=== PATIENT | female | born 1995 | race Caucasian/White ===

== ENCOUNTER 2019-07-10 11:01 | Emergency (ER) | payer OTHER ==
--- NOTE | 2019-07-10 12:25 | ED Physician Documentation ---
PD HPI ABD PAIN - Stated complaint Stated Complaint: FEMALE - Chief complaint Chief Complaint: Abd Pain - History obtained from History obtained from: Patient - History of Present Illness Timing - onset: Other (G1 23-year-old woman with unknown last menses, she had an IUD and switched over to control pill in April. She started spotting about 5 days ago and took a home test which was positive. She continues to spot and have mild pelvic pain.) Review of Systems Ten Systems: 10 systems reviewed and negative Constitutional: denies: Fever, Chills Cardiac: denies: Chest pain / pressure, Palpitations Respiratory: denies: Dyspnea, Cough PD PAST MEDICAL HISTORY - Past Medical History Past Medical History: No - Allergies Allergies/Adverse Reactions: Allergies Allergy/AdvReac Type Severity Reaction Status Date / Time No Known Drug Allergies Allergy Verified 07/10/19 11:05 - Family History Family history: reports: Non contributory PD ED PE NORMAL - Vitals Vital signs reviewed: Yes - General General: Alert and oriented X 3, No acute distress - HEENT HEENT: PERRL, EOMI - Neck Neck: Supple, no meningeal sign, No bony TTP - Cardiac Cardiac: RRR, No murmur - Respiratory Respiratory: No respiratory distress, Clear bilaterally - Abdomen Abdomen: Normal bowel sounds, Soft, Non tender - Female Female : Other (Bedside ultrasound demonstrates a suggestion of a gestational sac without clear IUP. There is free fluid.) - Back Back: No CVA TTP, No spinal TTP - Derm Derm: Normal color, Warm and dry - Extremities Extremities: No edema, No calf tenderness / cord - Neuro Neuro: Alert and oriented X 3, Normal speech - Psych Psych: Normal mood Results - Vitals Vitals: Vital Signs - 24 hr 07/10/19 07/10/19 07/10/19 11:05 12:44 13:41 Temperature 36.8 C 37.1 C 37.2 C Heart Rate 73 71 81 Respiratory 17 16 16 Rate Blood Pressure 115/70 109/77 114/74 O2 Saturation 100 100 96 Oxygen O2 Source Room air - Labs Labs: Laboratory Tests 07/10/19 07/10/19 07/10/19 12:40 13:30 13:30 WBC 8.0 RBC 4.58 Hgb 14.1 Hct 42.3 MCV 92.4 MCH 30.8 MCHC 33.3 RDW 11.4 L Plt Count 300 MPV 9.6 Neut # (Auto) 5.3 Lymph # (Auto) 2.1 [place] # (Auto) 0.5 Eos # (Auto) 0.1 Baso # (Auto) 0.0 Absolute Nucleated RBC 0.00 Nucleated RBC % 0.0 Sodium 136 Potassium 3.7 Chloride 102 Carbon Dioxide 25 Anion Gap 9.0 BUN 12 Creatinine 0.9 Estimated GFR (MDRD) 76 L Glucose 91 Calcium 9.0 Total Bilirubin 0.8 AST 18 ALT 18 Alkaline Phosphatase 33 L Total Protein 7.5 Albumin 4.5 Globulin 3.0 Albumin/Globulin Ratio 1.5 Lipase 34 HCG, Quant Urine Color YELLOW Urine Clarity CLEAR Urine pH 6.0 Ur Specific [place] 1.010 Urine Protein NEGATIVE Urine Glucose (UA) NEGATIVE Urine Ketones NEGATIVE Urine Occult Blood LARGE H Urine Nitrite NEGATIVE Urine Bilirubin NEGATIVE Urine Urobilinogen 0.2 (NORMAL) Ur Leukocyte Esterase TRACE H Urine RBC 0-5 Urine WBC 4-5 Ur Squamous Epith Cells RARE Squamous Urine Bacteria Rare Ur Microscopic Review INDICATED Urine Culture Comments INDICATED 07/10/19 13:30 WBC RBC Hgb Hct MCV MCH MCHC RDW Plt Count MPV Neut # (Auto) Lymph # (Auto) [place] # (Auto) Eos # (Auto) Baso # (Auto) Absolute Nucleated RBC Nucleated RBC % Sodium Potassium Chloride Carbon Dioxide Anion Gap BUN Creatinine Estimated GFR (MDRD) Glucose Calcium Total Bilirubin AST ALT Alkaline Phosphatase Total Protein Albumin Globulin Albumin/Globulin Ratio Lipase HCG, Quant 9131.00 Urine Color Urine Clarity Urine pH Ur Specific [place] Urine Protein Urine Glucose (UA) Urine Ketones Urine Occult Blood Urine Nitrite Urine Bilirubin Urine Urobilinogen Ur Leukocyte Esterase Urine RBC Urine WBC Ur Squamous Epith Cells Urine Bacteria Ur Microscopic Review Urine Culture Comments - Rads (name of study) Ob SOno Radiology: Final report received (Intrauterine of uncertain viability, corresponding to 5 weeks 4 days, recommend follow-up ultrasound in 7 to 10 days .) PD MEDICAL DECISION MAKING - ED course ED course: 24-year-old woman presents with spotting in early , results as shown, not sure of the viability but no evidence of ectopic. Departure - Departure Disposition: 01 Home, Self Care Clinical Impression: Threatened affecting intrauterine Condition: Good Record reviewed to determine appropriate education?: Yes Instructions: ED Miscarriage Poss Comments: [place] discussed you need a repeat ultrasound in 7 to 10 days to assess the viability of the . Return for heavy bleeding or significant pain.
[2019-07-10 12:56] LABS: BILIRUBIN,URINE NEGATIVE (NEGATIVE); GLUCOSE, URINE (UA) NEGATIVE (NEGATIVE); KETONES,URINE (UA) NEGATIVE (NEGATIVE); LEUKOCYTE ESTERASE, URINE TRACE (NEGATIVE); NITRITE,URINE NEGATIVE (NEGATIVE); OCCULT BLOOD,URINE LARGE (NEGATIVE); PROTEIN,URINE NEGATIVE (NEGATIVE); UROBILINOGEN,URINE 0.2 (NORMAL) E.U./dL (NORMAL)
[2019-07-10 12:58] LABS: CLARITY,URINE CLEAR (CLEAR)
[2019-07-10 13:13] LABS: BACTERIA,URINE Rare /HPF (None Seen); RBC,URINE 0-5 /HPF (0-5); SQUAMOUS EPITHELIAL CELL,UR RARE Squamous (<= Few)
[2019-07-10 13:47] LABS: BASOPHILS % (AUTO) 0.4 %; EOSINOPHILS # (AUTO) 0.1 10^3/uL (0.0-0.7); EOSINOPHILS % (AUTO) 1.4 %; HGB - HEMOGLOBIN 14.1 g/dL (12.0-16.0); LYMPHOCYTES # (AUTO) 2.1 10^3/uL (1.5-3.5); LYMPHOCYTES % (AUTO) 25.9 %; MEAN CORPUSCULAR HEMOGLOBIN 30.8 pg (27.0-31.0); MEAN CORPUSCULAR HGB CONC 33.3 g/dL (32.0-36.0); MEAN CORPUSCULAR VOLUME 92.4 fL (81.0-99.0); MEAN PLATELET VOLUME 9.6 fL (7.9-10.8); MONOCYTES # (AUTO) 0.5 10^3/uL (0.0-1.0); NEUTROPHILS # (AUTO) 5.3 10^3/uL (1.5-6.6); NEUTROPHILS % (AUTO) 65.9 %; PLT - PLATELET COUNT 300 10^3/uL (130-450); RED BLOOD COUNT 4.58 10^6/uL (4.20-5.40); RED CELL DISTRIBUTION WIDTH 11.4 % (12.0-15.0)
[2019-07-10 13:54] LABS: ALBUMIN 4.5 g/dL (3.2-5.5); ALBUMIN/GLOBULIN RATIO 1.5 (1.0-2.2); BILIRUBIN,TOTAL 0.8 mg/dL (0.2-1.0); CREATININE 0.9 mg/dL (0.4-1.0); TOTAL PROTEIN 7.5 g/dL (6.7-8.2)
--- NOTE | 2019-07-10 14:16 | Ultrasound Report ---
Reason: vb preg Procedure Date: 07/10/2019 Accession Number: [id number] / [id number] Procedure: US - OB First Trimester CPT Code: Final Report FULL RESULT: EXAM: FIRST TRIMESTER OBSTETRIC ULTRASOUND (Less than 11 weeks) EXAM DATE: 07/10/2019 01:31 PM. CLINICAL HISTORY: , vaginal bleeding. LMP: Unknown. COMPARISONS: None. TECHNIQUE: Transabdominal and transvaginal ultrasound examination with static image documentation. CLINICAL DATES: EGA not previously established. ASSESSMENT: Gestational Sac: Single intrauterine. Mean gestational sac diameter: 8.0 mm = 5 weeks 4 days. Embryo: No pole visualized. Cardiac activity: Not visualized. Yolk sac: 1.8 mm. Amniotic fluid: Not accurately assessed at this gestational age. Early placenta: Not visible at this gestational age. Other: No perigestational fluid collection demonstrated. MATERNAL STRUCTURES: Uterus: Anteverted/Retroverted. Unremarkable. Cervix: Closed. Right Ovary/Adnexa: The ovary measures 3.3 x 2.0 x 2.4 cm, volume 8.3 cc. Unremarkable. The right ovary contains a corpus luteum measuring 1.8 x 1.8 x 1.5 cm. Left Ovary/Adnexa: The ovary measures 2.3 x 2.0 x 1.7 cm, volume 4.1 cc. Unremarkable. Free Fluid: There is a small amount of simple free fluid in the pelvis. Other: None. IMPRESSION: 1. Intrauterine of uncertain viability. Early intrauterine gestational sac with size corresponding to a gestational age of 5 weeks 4 days. Recommend follow-up ultrasound in 7-10 days to assess viability. 2. Assigned dating is TONEY 03/07/2020 based on the current ultrasound. RADIA
[2019-07-10 14:33] VITALS: BP 129/85
== END 2019-07-10 14:39 | disposition home or self-care (01) ==
LOC: EDBD 11:01 → ED 11:01
DX: O20.0 Threatened abortion (principal); Z3A.01 Less than 8 weeks gestation of pregnancy
CPT/HCPCS: 36415; 76801; 76817; 80053; 81001; 81003; 83690; 84702; 85025; 86900; 86901; 87086; 99283; 99284

== ENCOUNTER 2020-02-12 08:00 | Outpatient (CLI) | payer OTHER ==
[2020-02-12 22:41] LABS: TRICHOMONAS VAGINALIS DNA NEGATIVE (NEGATIVE)
== END 2020-02-12 23:59 | disposition home or self-care (01) ==
LOC: LAB.R 08:00
PROVIDERS: ATTEND Radiology Diagnostic Radiology
DX: Z34.90 Encounter for supervision of normal pregnancy, unspecified, unspecified trimester (principal); Z11.3 Encounter for screening for infections with a predominantly sexual mode of transmission; Z36.85 Encounter for antenatal screening for Streptococcus B
CPT/HCPCS: 87491; 87591; 87661; 87797

== ENCOUNTER 2020-03-09 23:34 | Inpatient (IN) | payer OTHER ==
[2020-03-09] MEDS ORDERED: LACTATED RINGERS 1,000 ML IV SCH (23:45)
[2020-03-09] MEDS ORDERED: OXYTOCIN/SODIUM CHLORIDE 500 ML IV PRN (23:56)
[2020-03-09] MEDS ORDERED: miSOPROStoL 200 MCG TABLET BC PRN (23:56)
[2020-03-09] MEDS ORDERED: TRANEXAMIC ACID 1,000 MG in SODIUM CHLORIDE 0.9% 100ML 100 ML IV PRN (23:56)
[2020-03-09] MEDS ORDERED: LIDOCAINE-MPF 1% 30 ML VIAL ID PRN (23:56)
[2020-03-09] MEDS ORDERED: SODIUM CHLORIDE FLUSH 0.9% 10 ML SYRINGE IVP PRN (23:56)
[2020-03-09] MEDS ORDERED: METHYLERGONOVINE 0.2 MG/ML VIAL IM PRN (23:56)
[2020-03-09] MEDS ORDERED: CARBOPROST TROMETHAMINE 250 MCG/ML AMP IM PRN (23:56)
[2020-03-09] MEDS ORDERED: OXYTOCIN 10 UNIT/ML VIAL IM PRN (23:56)
[2020-03-10] MEDS ORDERED: fentaNYL 100 MCG/2 ML VIAL ONE ×2 (00:32→00:56)
[2020-03-10] MEDS ORDERED: fentaNYL 250 MCG/5 ML VIAL IVP SCH (00:35)
[2020-03-10 00:51] LABS: BASOPHILS % (AUTO) 0.2 %; EOSINOPHILS % (AUTO) 0.2 %; HGB - HEMOGLOBIN 11.7 g/dL (12.0-16.0); LYMPHOCYTES # (AUTO) 1.9 10^3/uL (1.5-3.5); LYMPHOCYTES % (AUTO) 12.4 %; MEAN CORPUSCULAR HEMOGLOBIN 27.3 pg (27.0-31.0); MEAN CORPUSCULAR HGB CONC 33.1 g/dL (32.0-36.0); MEAN CORPUSCULAR VOLUME 82.5 fL (81.0-99.0); MEAN PLATELET VOLUME 10.6 fL (7.9-10.8); MONOCYTES % (AUTO) 6.2 %; NEUTROPHILS # (AUTO) 12.4 10^3/uL (1.5-6.6); NEUTROPHILS % (AUTO) 80.1 %; PLT - PLATELET COUNT 255 10^3/uL (130-450); RED BLOOD COUNT 4.29 10^6/uL (4.20-5.40); RED CELL DISTRIBUTION WIDTH 13.4 % (12.0-15.0); WHITE BLOOD COUNT 15.4 x10^3/uL (4.8-10.8)
--- NOTE | 2020-03-10 00:55 | HISTORY & PHYSICAL EXAMINATION ---
History of Present Illness - History of Present Illness HPI Comment/Other: CC: labor HPI: Contractions started intensely at 22:30. No VB, no LOF. ROS: no fevers PMH: HSV PSH: D&C Allergies: NKDA Meds: PNV, valtrex SH: no t/e/d OB: , TONEY 03/06 . A+, RI, . S/p Tdap. O: VS pending Screaming/moaning/crying Abd soft, nt/nd. SVE 5/100/0 NST with normal baseline and mod LTV. Had a 2min variable with yuridia 70. Other variables lasting 20sec with yuridia 90. No 15x15 accels but she is having 10 second "accelerations" A/P: 24yo P1 at 40w4d with spontaneous labor. --Epidural per her request for pain control. --Fetus: vertex, EFW will check post epidural, normal genetic screen, normal anatomy screen. --Monitoring: category 1 with variables. Position changes and observation. 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
[2020-03-10] MEDS ORDERED: ROPIVACAINE 0.2% 200 MG/100 ML BAG EP ONE (00:57)
[2020-03-10] MEDS ORDERED: fentaNYL 100 MCG/2 ML VIAL IVP ONE (01:00)
--- NOTE | 2020-03-10 01:17 | ANESTHESIA ---
Pre-Anesthesia VS, & Labs - Diagnosis active labor - Procedure vaginal delivery Vital Signs: Temp Pulse Resp BP Pulse Ox 35.9 C L 95 18 122/67 03/09/20 23:56 03/09/20 23:56 03/09/20 23:56 03/09/20 23:56 Height 5 ft 5 in Body Mass Index 23.3 - NPO Other (clear liquids) - Is Patient ?: Yes - Lab Results Current Lab Results: Laboratory Tests 03/10/20 00:20: WBC 15.4 H, RBC 4.29, Hgb 11.7 L, Hct 35.4 L, MCV 82.5, MCH 27.3, MCHC 33.1, RDW 13.4, Plt Count 255, MPV 10.6, Neut # (Auto) 12.4 H, Lymph # (Auto) 1.9, [place] # (Auto) 1.0, Eos # (Auto) 0.0, Baso # (Auto) 0.0, Absolute Nucleated RBC 0.00, Nucleated RBC % 0.0 Fish Bones: 03/10/20 00:20 Home Medications and Allergies Active Medications Carboprost Tromethamine (Hemabate) 250 mcg IM Q15M PRN PRN Reason: Step 4: Hemorrhage protocol Stop: 03/14/20 23:57 Lactated Ringer's (Lr) 1,000 mls @ 150 mls/hr IV .Q6H40M NABOR Oxytocin/Sodium Chloride (Pitocin/Sodium Chloride) 500 mls @ 999 mls/hr IV PRN PRN; Protocol PRN Reason: POST- HEMORR PREVENTION Stop: 03/14/20 23:57 Tranexamic Acid 1,000 mg/ (Sodium Chloride) 110 mls @ 660 mls/hr IV .ONCE PRN PRN Reason: EBL >1200mL and within 3hr Stop: 03/14/20 23:57 Lidocaine HCl (Xylocaine-Mpf 1% Vial) 30 ml ID .ONCE PRN PRN Reason: PERINEAL REPAIR Stop: 03/14/20 23:57 Methylergonovine Maleate (Methergine Inj) 0.2 mg IM .ONCE PRN PRN Reason: Step 2: Hemorrhage protocol Stop: 03/14/20 23:57 Misoprostol (Cytotec) 800 mcg BC .ONCE PRN PRN Reason: Step 3: Hemorrhage protocol Stop: 03/14/20 23:57 Oxytocin (Pitocin) 10 unit IM .ONCE PRN PRN Reason: Step one: If no IV access Stop: 03/14/20 23:57 Sodium Chloride (Normal Saline Flush 0.9%) 10 ml IVP PRN PRN PRN Reason: NEEDED PER PROVIDER ORDERS Sodium Chloride (Normal Saline Flush 0.9%) 10 ml IVP 0100,0900,1700 NABOR PNV, Valtrex Allergies/Adverse Reactions: Allergies Allergy/AdvReac Type Severity Reaction Status Date / Time No Known Drug Allergies Allergy Verified 07/10/19 11:05 Anes History & Medical History - Anesthetic History Anesthesia Complications: reports: No previous complications - Medical History Cardiovascular: reports: None Pulmonary: reports: None Gastrointestinal: reports: None Urinary: reports: None Neuro: reports: None Musculoskeletal: reports: None Endocrine/Autoimmune: reports: None Blood Disorders: reports: None Skin: reports: None Smoking Status: Never smoker Psychosocial: reports: No issues indicated - Surgical History Gynecologic: Dilation and currettage Exam General: Alert, Oriented x3, Cooperative, No acute distress Dental: WNL Mouth Openin Fingerbreadth Neck Mobility: Normal Mallampati classification: II Mental/Cognitive Status: Alert/Oriented X3, Normal for patient Plan Anesthesia Type: Epidural Consent for Procedure(s) Verified and Reviewed: Yes Code Status: Attempt Resuscitation ASA classification: 2-Mild systemic disease Is this case an emergency?: No
[2020-03-10] MEDS ORDERED: ONDANSETRON 4 MG/2 ML VIAL IVP PRN (01:23)
[2020-03-10] MEDS ORDERED: NALBUPHINE 10 MG/ML AMP IVP PRN (01:23)
[2020-03-10] MEDS ORDERED: ePHEDrine 50 MG/ML VIAL IVP PRN (01:23)
[2020-03-10] MEDS ORDERED: ROPIVACAINE 0.2% 200 MG/100 ML BAG EP PRN (01:23)
[2020-03-10] MEDS ORDERED: NALOXONE 0.4 MG/ML VIAL IVP PRN (01:23)
--- NOTE | 2020-03-10 07:07 | PROVIDER PROGRESS NOTE ---
Subjective - Subjective Subjective: Feeling some pressure VSS NST with normal baseline, moderate LTV, no accels. Had a run of 3 late decels in a row about 45min ago. Now having variables with contractions with good va riability preserved during the decel. [place] q2-3 AROM "moderate" mec after verbal consent and verifying pt's ability to push effectively. CNM taking over the , I am available PRN. Patient is pushing effectively and has brought baby down to +2 station during a push. Likely has a nuchal cord based on heart rate tracing. Anticipate . Peds and RT aware of mec. Objective - Vital Signs/Intake & Output Vital Signs: Vital Signs x48h Temp Pulse Resp BP 03/10/20 01:43 96.7 F L 95 18 122/67 - Lab Results Fish Bones: 03/10/20 00:20 Other Labs: Lab Results x24hrs 03/10/20 03/10/20 Range/Units 00:20 00:20 WBC 15.4 H (4.8-10.8) x10^3/uL RBC 4.29 (4.20-5.40) 10^6/uL Hgb 11.7 L (12.0-16.0) g/dL Hct 35.4 L (37.0-47.0) % MCV 82.5 (81.0-99.0) fL MCH 27.3 (27.0-31.0) pg MCHC 33.1 (32.0-36.0) g/dL RDW 13.4 (12.0-15.0) % Plt Count 255 (130-450) 10^3/uL MPV 10.6 (7.9-10.8) fL Neut # (Auto) 12.4 H (1.5-6.6) 10^3/uL Lymph # (Auto) 1.9 (1.5-3.5) 10^3/uL [place] # (Auto) 1.0 (0.0-1.0) 10^3/uL Eos # (Auto) 0.0 (0.0-0.7) 10^3/uL Baso # (Auto) 0.0 (0.0-0.1) 10^3/uL Absolute Nucleated RBC 0.00 x10^3/uL Nucleated RBC % 0.0 /100WBC Blood Type A POSITIVE Antibody Screen NEGATIVE
[2020-03-10] MEDS ORDERED: WITCH HAZEL/GLYCERIN 1 PAD TOP PRN (08:05)
[2020-03-10] MEDS ORDERED: HYDROCORTISONE 1% CREAM 28 GM TUBE PR PRN (08:05)
--- NOTE | 2020-03-10 08:10 | DELIVERY NOTE ---
Delivery Note - Labor Labor: positive: Spontaneous, Augmented by ARM - Infant Delivery Method Delivery Method: positive: Spontaneous vaginal delivery - Presentation Presentation: positive: Vertex, TAMEKA - right occiput anterior - Nuchal Cord Nuchal Cord: positive: Present (x3, sommersaulted) - Anesthetic Anesthetic Type: - Amniotic Fluid Description Amniotic Fluid Description: positive: Moderate meconium - Laceration Laceration: positive: 2nd degree, Perineal - Suture Suture Type: positive: Vicryl Suture Size: positive: 3-0 - Delivery Outcome Delivery Outcome: positive: Livebirth - [place] : positive: Placed in direct skin contact with mother, Bulb syringe, Stimulated sex: positive: Male : 7 : 9 - Cord Cord: positive: 3 vessels - Placenta Placenta: positive: Intact, Spontaneous - Estimated Blood Loss Estimated Blood Loss (in cc): 200 - Post Delivery Events Post Delivery Events: positive: No post delivery events - Delivery Comments (Free Text/Narrative) Delivery Comments (Free Text/Narrative): Note: Labor: This 24 year old, , @40.4 wks gestation presented @ 2340 in active labor. Cervix was 5/100/0 and vertex. FHR pattern demonstrated moderate variability with intermittent variable decels in a Category II pattern. Normal labor course. Epidural placed upon maternal request. AROM occurred @ 0629 and amount and color of fluid were noted to be moderate and meconium stained. She was complete and pushing at this time and peds was notified. Transfer of care from MD to CNM at 0700. Cat II strip continued with variables and lates with pushing efforts. Return to baseline with moderate variability noted between p ushes. : Normal of a 3500gm male infant on 03/10/2020 @ 0724. Nuchal tight x3, baby sommersaulted through. The was placed on maternal abdomen, stimulated, dried and placed skin to skin. Apgars 7 at one minute and 9 at five minutes. The umbilical cord was allowed to stop pulsating at which time it was doubly clamped by CNM and cut by Grandmother. Pitocin administered via IV for hemostasis. . Fundal massage and gentle cord traction applied for active third stage management. Cord blood was obtained. Placenta delivered spontaneously and intact at 0732. Three vessel cord. EBL 200mL. Fourth Stage: Uterine fundus firm and without excessive bleeding. The perineum, vagina, and cervix were inspected and found to be intact. A second degree perineal laceration was discovered and repaired in standard fashion under sterile conditions, using epidural for anesthesia and a 3-0 vicryl. Vaginal examination following repair was done. Tissues well approximated. initiated. Family bonding well. Both mother and baby are in stable condition.
[2020-03-10] MEDS: SODIUM CHLORIDE FLUSH 0.9% 10 ML SYRINGE IVP SCH ×2 (08:45→09:22)
[2020-03-10] MEDS: DOCUSATE SODIUM 100 MG CAPSULE PO PRN ×2 (09:06→20:50)
[2020-03-10] MEDS: IBUPROFEN 600 MG TABLET PO PRN ×3 (09:06→20:49)
[2020-03-10] MEDS: ACETAMINOPHEN 500 MG TABLET PO PRN ×2 (09:06→16:52)
[2020-03-11] MEDS: IBUPROFEN 600 MG TABLET PO PRN ×2 (04:24→09:58)
[2020-03-11] MEDS: ACETAMINOPHEN 500 MG TABLET PO PRN (04:25)
--- NOTE | 2020-03-11 07:35 | PROVIDER PROGRESS NOTE ---
Subjective - Prog Note Date Prog Note Date: 03/11/20 Prog Note Time: 07:34 - Subjective Pt reports feeling: Improved Subjective: Final Progress Note S: Marty is resting in bed, baby Abdullahi Vidal. She reports her pain as well controlled with PO meds, and her bleeding as light. She desires to go home today O: VSS Perineum healing well Lochia rubra- moderate Fundus firm A: 24yo s/p on 03/10/2020 at 0734, PP Day 1 Regular course P: Continue with routine care Evaluate for discharge home today. Objective - Vital Signs/Intake & Output Vital Signs: Vital Signs x48h Temp Pulse Resp BP Pulse Ox 03/11/20 04:00 36.9 C 86 16 105/63 100 03/11/20 00:02 37.0 C 77 16 98/54 L 100 Intake & Output: Intake & Output 03/08/20 03/09/20 03/10/20 03/11/20 23:59 23:59 23:59 23:59 Intake Total 2360.0 Output Total 400 Balance 1960.0 - Lab Results Fish Bones: 03/10/20 00:20
[2020-03-11 07:47] VITALS: BP 104/63
--- NOTE | 2020-03-11 07:53 | DISCHARGE SUMMARY ---
Discharge Summary Admit Date: 03/10/20 Discharge Date: 03/11/20 Discharging Provider: Anna Marcum CNShruthi Code Status: Attempt Resuscitation Condition at Discharge: Good - HPI History of Present Illness: Admit Date: 03/10/2020 Discharge Date 03/11/2020 Diagnosis on Admission: 1. A 24yo at 40.4 week intrauterine 2. Active Labor Diagnosis on Discharge 1. A 24yo s/p spontaneous vaginal delivery on 03/10/2020 2. Normal recovery Brief History: She is a patient at [facility] who presented on 03/10/2020 near midnight with complaints of contractions. The patient was found to contract every 1 to 3 minutes and her cervix was 5cm dilated, 100%effaced, and 0 station. She delivered a viable male named Abdullahi Vidal. Apgars were 7 and 9- and 1 and 5 minutes respectively. EBL 200 mL. The patient has a 2nd degree laceration that was repaired with 3-0 vicryl in usual fashion under sterile conditions. She has been doing well in her course. She is ambulating and tolerating a regular diet. She is urinating without difficulty and her lochia is normal. Her pain is well controlled with oral medications. She will be discharged home today on day #1 with prescriptions for ibuprofen and colace. She intends to follow up with myself at [facility] in 1, 3, and 6 weeks for routine visit. She has been given precautions to call if she has any worsening fevers, chills, abdominal pain, increased bleeding or foul smelling vaginal lochia. - ALLERGIES Allergies/Adverse Reactions: Allergies Allergy/AdvReac Type Severity Reaction Status Date / Time No Known Drug Allergies Allergy Verified 07/10/19 11:05 - LABS Result Diagrams: 03/10/20 00:20
[2020-03-11] MEDS: DOCUSATE SODIUM 100 MG CAPSULE PO PRN (09:58)
--- NOTE | 2020-03-11 11:39 | Discharge Plan ---
Discharge Plan Problem Reviewed?: Yes Disposition: Home, Self Care Condition: Good Diet: Regular Plan of Treatment: Follow up at 1,3, and 6wks No Smoking: If you smoke, Please STOP! Call for help. Follow-up with: Anna Marcum ARNP [Provider Admit Priv/Credential] -
--- NOTE | 2020-03-11 14:22 | Labor Flowsheet ---
Labor Flowsheet Datetime Report Generated by CPN: 03/11/2020 14:21 Datetime: 03/10/2020 11:03 VITAL SIGNS NBP Sys/Liana/Mean (mmHg): 111 : 69 : 78 Pulse: 84 Temperature (C): 36.6 Datetime: 03/10/2020 10:30 SpO2 (%): 98
== END 2020-03-11 11:45 | disposition home or self-care (01) | DRG 807 ==
LOC: WFO 23:34 → FBP 23:36 → WFO 23:55 → FBP 23:56
PROVIDERS: ADMIT Obstetrics & Gynecology; ATTEND Advanced Practice Midwife
PROC: 10E0XZZ Delivery of Products of Conception, External Approach (ICD-10-PCS; principal; 2020-03-10)
PROC: 10907ZC Drainage of Amniotic Fluid, Therapeutic from Products of Conception, Via Natural or Artificial Opening (ICD-10-PCS; 2020-03-10)
DX: O76 Abnormality in fetal heart rate and rhythm complicating labor and delivery (principal); Z37.0 Single live birth; O70.1 Second degree perineal laceration during delivery; O77.0 Labor and delivery complicated by meconium in amniotic fluid; O69.1XX0 Labor and delivery complicated by cord around neck, with compression, not applicable or unspecified; Z3A.40 40 weeks gestation of pregnancy
CPT/HCPCS: 85025; 86850; 86900; 86901; 99213; A9270; J7120

== ENCOUNTER 2021-01-18 10:16 | Emergency (ER) | payer OTHER ==
[2021-01-18 11:21] LABS: BASOPHILS % (AUTO) 0.2 %; EOSINOPHILS % (AUTO) 0.4 %; HCT - HEMATOCRIT 45.3 % (37.0-47.0); HGB - HEMOGLOBIN 14.7 g/dL (12.0-16.0); LYMPHOCYTES # (AUTO) 0.6 10^3/uL (1.5-3.5); LYMPHOCYTES % (AUTO) 6.8 %; MEAN CORPUSCULAR HGB CONC 32.5 g/dL (32.0-36.0); MEAN CORPUSCULAR VOLUME 92.4 fL (81.0-99.0); MEAN PLATELET VOLUME 9.4 fL (7.9-10.8); MONOCYTES # (AUTO) 0.5 10^3/uL (0.0-1.0); MONOCYTES % (AUTO) 5.2 %; NEUTROPHILS # (AUTO) 8.2 10^3/uL (1.5-6.6); NEUTROPHILS % (AUTO) 87.1 %; PLT - PLATELET COUNT 245 10^3/uL (130-450); RED CELL DISTRIBUTION WIDTH 11.9 % (12.0-15.0); WHITE BLOOD COUNT 9.4 x10^3/uL (4.8-10.8)
[2021-01-18 11:35] LABS: ALBUMIN 5.1 g/dL (3.2-5.5); ALBUMIN/GLOBULIN RATIO 1.6 (1.0-2.2); CALCIUM 9.1 mg/dL (8.5-10.3); CREATININE 0.9 mg/dL (0.4-1.0); TOTAL PROTEIN 8.3 g/dL (6.7-8.2)
[2021-01-18 12:01] LABS: GLUCOSE, URINE (UA) NEGATIVE (NEGATIVE); KETONES,URINE (UA) 40 mg/dL (NEGATIVE); LEUKOCYTE ESTERASE, URINE NEGATIVE (NEGATIVE); NITRITE,URINE NEGATIVE (NEGATIVE); OCCULT BLOOD,URINE NEGATIVE (NEGATIVE); PROTEIN,URINE NEGATIVE (NEGATIVE); UROBILINOGEN,URINE 0.2 (NORMAL) E.U./dL (NORMAL)
[2021-01-18 12:04] LABS: BILIRUBIN,URINE NEGATIVE (NEGATIVE); CLARITY,URINE CLEAR (CLEAR); ICTOTEST,URINE NEGATIVE
[2021-01-18 12:05] LABS: HCG UR QUAL NEGATIVE
[2021-01-18] MEDS ORDERED: SODIUM CHLORIDE 0.9% 1,000 ML IV STA (12:11)
[2021-01-18] MEDS ORDERED: ONDANSETRON 4 MG/2 ML VIAL IVP STA (12:11)
[2021-01-18] MEDS ORDERED: KETOROLAC 30 MG/ML VIAL IVP STA (12:49)
--- NOTE | 2021-01-18 12:52 | ED Physician Documentation ---
History of Present Illness - Stated complaint Stated Complaint: WEAK/VOMITING/CHILLS - Chief complaint Chief Complaint: Abd Pain - History obtained from History obtained from: Patient - Additonal information Additional information: Patient comes emergency department chief complaint of nausea and vomiting that started yesterday evening. Patient states that her toddler's been sick with the same thing and goes to daycare, so she suspects that this is the source of her illness. Patient denies any diarrhea. She has chills but no fevers. No abdominal pain other than some soreness from the vomiting. No respiratory symptoms. No other complaints at this time Review of Systems Ten Systems: 10 systems reviewed and negative Constitutional: reports: Reviewed and negative Eyes: reports: Reviewed and negative Ears: reports: Reviewed and negative Nose: reports: Reviewed and negative Throat: reports: Reviewed and negative Cardiac: reports: Reviewed and negative Respiratory: reports: Reviewed and negative GI: reports: Nausea, Vomiting. 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 - Present Medications Home Medications: Ambulatory Orders Medication Instructions Recorded Confirmed Levocetirizine Dihydrochloride 5 mg PO DAILY 01/18/21 01/18/21 [Xyzal] Ondansetron Odt [Zofran] 4 mg TL Q6H PRN #10 tablet 01/18/21 Sertraline [Zoloft] 25 mg PO DAILY 01/18/21 01/18/21 - Allergies Allergies/Adverse Reactions: Allergies Allergy/AdvReac Type Severity Reaction Status Date / Time No Known Drug Allergies Allergy Verified 01/18/21 10:33 - Social History Does the pt smoke?: No Smoking Status: Never smoker Does the pt drink ETOH?: No Does the pt have substance abuse?: No - Immunizations Immunizations are current?: Yes - POLST Patient has POLST: No PD ED PE NORMAL - Vitals Vital signs reviewed: Yes - General General: Alert and oriented X 3, No acute distress, Well developed/nourished - HEENT HEENT: Atraumatic, PERRL, EOMI, Moist mucous membranes - Neck Neck: Supple, no meningeal sign - Cardiac Cardiac: RRR, No murmur, Strong equal pulses - Respiratory Respiratory: No respiratory distress, Clear bilaterally - Abdomen Abdomen: Soft, Non tender, Non distended - Derm Derm: Normal color, Warm and dry, No rash - Extremities Extremities: No deformity, No edema - Neuro Neuro: Alert and oriented X 3 - Psych Psych: Normal mood, Normal affect Results - Vitals Vitals: Vital Signs - 24 hr 01/18/21 10:34 Temperature 36.8 C Heart Rate 124 H Respiratory 18 Rate Blood Pressure 113/81 H O2 Saturation 98 Oxygen O2 Source Room air - Labs Labs: Laboratory Tests 01/18/21 01/18/21 01/18/21 11:16 11:16 11:49 WBC 9.4 RBC 4.90 Hgb 14.7 Hct 45.3 MCV 92.4 MCH 30.0 MCHC 32.5 RDW 11.9 L Plt Count 245 MPV 9.4 Neut # (Auto) 8.2 H Lymph # (Auto) 0.6 L [place] # (Auto) 0.5 Eos # (Auto) 0.0 Baso # (Auto) 0.0 Absolute Nucleated RBC 0.00 Nucleated RBC % 0.0 Sodium 139 Potassium 4.0 Chloride 101 Carbon Dioxide 24 Anion Gap 14.0 H BUN 25 H Creatinine 0.9 Estimated GFR (MDRD) 76 L Glucose 95 Calcium 9.1 Total Bilirubin 1.0 AST 23 ALT 33 Alkaline Phosphatase 87 Total Protein 8.3 H Albumin 5.1 Globulin 3.2 Albumin/Globulin Ratio 1.6 Lipase 25 Urine Color YELLOW Urine Clarity CLEAR Urine pH 6.0 Ur Specific [place] >=1.030 H Urine Protein NEGATIVE Urine Glucose (UA) NEGATIVE Urine Ketones 40 H Urine Occult Blood NEGATIVE Urine Nitrite NEGATIVE Urine Bilirubin NEGATIVE Urine Urobilinogen 0.2 (NORMAL) Ur Leukocyte Esterase NEGATIVE Ur Microscopic Review NOT INDICATED Urine Culture Comments NOT INDICATED Urine HCG, Qual NEGATIVE PD MEDICAL DECISION MAKING - ED course Complexity details: reviewed results, re-evaluated patient, considered differential, d/w patient ED course: Patient was worked up with laboratory studies and urinalysis which were unremarkable, other than some urinary concentration. The patient was given 1 L bolus 0.9 normal saline as well as Zofran and Toradol, and was found to be feeling better. I feel she is stable for discharge home. We have discussed that this is most likely a virus which will blow over on its own. We have discussed hydration, advancement of diet, symptomatic control, and the usual indications for return. Departure - Departure Clinical Impression: Viral syndrome Vomiting Qualifiers: Vomiting type: bilious vomiting Nausea presence: with nausea Qualified Code(s): R11.14 - Bilious vomiting Condition: Stable Instructions: ED Nausea Vomiting Prescriptions: Ondansetron Odt [Zofran] 4 mg TL Q6H PRN #10 tablet PRN Reason: Nausea / Vomiting
[2021-01-18 13:28] VITALS: BP 111/75
== END 2021-01-18 14:17 | disposition home or self-care (01) ==
LOC: ED 10:16
DX: B34.9 Viral infection, unspecified (principal); R11.14 Bilious vomiting
CPT/HCPCS: 36415; 80053; 81001; 81003; 81025; 83690; 85025; 87086; 96374; 96375; 99284